=== PATIENT | male | born 1980 | race Caucasian/White ===

== ENCOUNTER 2022-10-29 07:49 | Inpatient (IN) | payer OTHER, BC ==
[2022-10-29] MEDS ORDERED: Hyoscyamine 0.125 MG Tab.SL *PTOM SL PRN (09:53)
[2022-10-29] MEDS ORDERED: Bisacodyl 10 MG Supp *PTOM RECTAL PRN (09:54)
[2022-10-29] MEDS ORDERED: Morphine 10 MG/0.5 ML Oral Syringe PO PRN (09:54)
[2022-10-29] MEDS ORDERED: Haloperidol Lactate Oral Concetrate 2 MG/ML ML 120 ML Bottle PO PRN (09:55)
[2022-10-29] MEDS ORDERED: LORazepam Conc Solution 2 MG/ML 30 ML Bottle PO PRN (09:56)
[2022-10-29] MEDS ORDERED: Ondansetron 4 MG Tab.DIS *PTOM PO PRN (09:58)
[2022-10-29] MEDS ORDERED: [UNRECOGNIZED DRUG - OTHER] PO PRN (10:11)
[2022-10-29] MEDS ORDERED: HALOPERIDOL LACTATE PO PRN (10:11)
[2022-10-29] MEDS ORDERED: Ondansetron 4 MG Tab.DIS *PTOM PRN (10:16)
[2022-10-29] MEDS: LORazepam Conc Solution 2 MG/ML 30 ML Bottle PO SCH ×3 (12:30→21:01)
[2022-10-29] MEDS: [UNRECOGNIZED DRUG - OTHER] PO SCH ×3 (12:31→21:10)
[2022-10-29] MEDS: HALOPERIDOL LACTATE PO SCH ×3 (12:31→21:10)
[2022-10-29] MEDS: Morphine 10 MG/0.5 ML Oral Syringe PO SCH ×2 (15:46→21:02)
[2022-10-30] MEDS: [UNRECOGNIZED DRUG - OTHER] PO SCH ×6 (01:13→20:39)
[2022-10-30] MEDS: HALOPERIDOL LACTATE PO SCH ×6 (01:13→20:39)
[2022-10-30] MEDS: LORazepam Conc Solution 2 MG/ML 30 ML Bottle PO SCH ×6 (01:15→20:39)
[2022-10-30] MEDS: Morphine 10 MG/0.5 ML Oral Syringe PO SCH ×2 (15:03→20:04)
[2022-10-30] MEDS ORDERED: Morphine 10 MG/0.5 ML Oral Syringe ONE ×2 (19:52→19:57)
[2022-10-31] MEDS: HALOPERIDOL LACTATE PO SCH (00:13)
[2022-10-31] MEDS: LORazepam Conc Solution 2 MG/ML 30 ML Bottle PO SCH (00:13)
[2022-10-31] MEDS: [UNRECOGNIZED DRUG - OTHER] PO SCH (00:13)
== END 2022-10-31 02:00 | disposition expired | DRG 951 ==
LOC: FB.MS 09:20
PROVIDERS: ADMIT Student in an Organized Health Care Education/Training Program; ATTEND Student in an Organized Health Care Education/Training Program
DX: Z51.5 Encounter for palliative care (principal); Z66 Do not resuscitate; Z75.5 Holiday relief care
CPT/HCPCS: A9270-GY; Q0162; Q5005